=== PATIENT | male | born 1960 | race Caucasian/White ===

== ENCOUNTER 2021-11-13 11:51 | Outpatient (REF) | payer OTHER, SELFPAY ==
--- NOTE | 2021-11-13 10:30 | TONG_PTH ---
PATIENT: Matty Cerda LOC: [facility] U#:[id number] AGE/SX: 61/M ROOM: RE11/13/[address]: Yvonne Jett : 1960 BED: DIS: 11/13/2021 SPEC #: [id number] RECD: 11/13/21 16:43 STATUS: SAMI REMehran #: [id number] NE: 11/13/21 10:[address]: Yvonne Jett DEPT: Surgical Specimen RECD BY: Polly Houser ENTERED: 11/13/21 16:43 SP TYPE: ALONDRA STRICKLAND DR: Nohelia Grady Tissues: 1 - TONSIL BIOPSY Procedures: GROSS AND MICRO LEVEL 4 SPECIAL STAIN 1 Comments: [id number]
== END 2021-11-13 11:52 | disposition home or self-care (01) ==
LOC: LBN 11:51
PROVIDERS: PCP Internal Medicine; Visit Provider Registered Nurse Maternal Newborn
DX: R23.4 Changes in skin texture (principal); B37.9 Candidiasis, unspecified
CPT/HCPCS: 88305; 88312